=== PATIENT | male | born 1975 | race Caucasian/White ===

== ENCOUNTER 2023-03-04 06:35 | Emergency (ER) | payer SELFPAY ==
[~2023-03-04] VITALS: Ht 172.7 cm; Wt 90.0 kg
[2023-03-04 06:35] VITALS: BP 151/87
== END 2023-03-04 07:12 | disposition home or self-care (01) ==
LOC: ER 06:35
DX: I83.891 Varicose veins of right lower extremity with other complications (principal)
CPT/HCPCS: 99283

== ENCOUNTER 2024-11-14 17:30 | Emergency (ER) | payer MEDICAID ==
[~2024-11-14] VITALS: Ht 165.1 cm; Wt 86.0 kg
[2024-11-14 17:46] VITALS: O2SAT 99
[2024-11-14] MEDS ORDERED: IBUPROFEN 400MG TABLET PO ONE (23:00)
[2024-11-14 23:15] LABS: BASOPHILS % 0.5 % (0.0-2.0); EOSINOPHILS % 0.2 % (0.0-5.0); HEMATOCRIT. 47.1 % (42.0-52.0); HEMOGLOBIN. 15.7 g/dL (14.0-18.0); LYMPHOCYTES % 16.1 % (20.0-50.0); MEAN CORPUSCULAR HEMOGLOBIN 30.6 pg (28.0-32.0); MEAN CORPUSCULAR HGB CONC 33.5 g/dL (31.0-37.0); MEAN CORPUSCULAR VOLUME 91.6 fL (80.0-94.0); MEAN PLATELET VOLUME 7.6 fl (7.4-10.4); MONOCYTES % 9.8 % (2.0-8.0); NEUTROPHILS % 73.4 % (40.0-76.0); PLATELET 323 x1000/uL (130-400); RED BLOOD CELL COUNT 5.14 mill/uL (4.7-6.1); RED CELL DISTRIBUTION WIDTH 13.7 % (11.6-14.6); WHITE BLOOD COUNT 15.2 x1000/uL (4.5-11.0)
[2024-11-14 23:30] LABS: CHLORIDE 108 mEq/L (98-107); POTASSIUM 4.3 mEq/L (3.5-5.1); SODIUM 144 mEq/L (136-145)
[2024-11-14 23:31] LABS: CARBON DIOXIDE 28 mEq/L (21-32)
[2024-11-14 23:32] LABS: CALCIUM 9.9 mg/dL (8.7-10.4)
[2024-11-14 23:36] LABS: CREATININE 0.9 mg/dL (0.6-1.3); GLUCOSE 155 mg/dL (70-105); UREA NITROGEN BLOOD 15 mg/dL (9-23)
[2024-11-14 23:38] LABS: ALANINE AMINOTRANSFERASE 42 IU/L (10-49); ALBUMIN 4.8 g/dL (3.2-4.8); ASPARTATE AMINOTRANSFERASE 26 IU/L (<34)
[2024-11-14 23:39] LABS: BILIRUBIN TOTAL 0.4 mg/dL (0.1-1.0); PROTEIN TOTAL 7.7 g/dL (6.0-8.3)
[2024-11-14 23:50] LABS: TROPONIN I HIGH SENSITIVITY < 4 ng/L (3.0-53)
[2024-11-15 00:45] VITALS: TEMP 37; O2SAT 100
[2024-11-15] MEDS ORDERED: IBUP-2028 MT (00:45)
[2024-11-15] MEDS: ACETAMINOPHEN 325MG TABLET PO ONE (00:45)
[2024-11-15 00:53] VITALS: BP 155/98; PULSE 89; RESP 16
[2024-11-15] MEDS: IBUPROFEN 400MG TABLET PO ONE (00:53)
== END 2024-11-15 01:05 | disposition home or self-care (01) ==
LOC: ER 17:30
DX: R07.89 Other chest pain (principal); M54.2 Cervicalgia; V43.52XA Car driver injured in collision with other type car in traffic accident, initial encounter; Y92.410 Unspecified street and highway as the place of occurrence of the external cause; Y93.89 Activity, other specified; Y99.8 Other external cause status
CPT/HCPCS: 36415; 71045; 71250; 80053; 84484; 85025; 93005; 99285